=== PATIENT | female | born 1990 | race Caucasian/White ===

== ENCOUNTER 2020-02-24 21:09 | Inpatient (IN) | payer MEDICAID ==
[~2020-02-24] VITALS: Ht 167.6 cm; Wt 90.7 kg
[2020-02-24] MEDS ORDERED: PNV1TABL76 PO (22:03)
[2020-02-24] MEDS ORDERED: FERR325T6 PO (22:03)
[2020-02-24] MEDS ORDERED: CALC-861 PO (22:03)
[2020-02-24] MEDS: LACTATED RINGERS 1,000 ML IV SCH (22:35)
[2020-02-24 22:39] LABS: CLARITY URINE CLEAR (CLEAR); COLOR URINE YELLOW (YELLOW); KETONES URINE NEGATIVE (NEGATIVE); LEUKOCYTE ESTERASE URINE 2+ (NEGATIVE); NITRITE URINE NEGATIVE (NEGATIVE); OCCULT BLOOD URINE NEGATIVE (NEGATIVE); PH URINE 6.5 (4.5-8.0); PROTEIN URINE NEGATIVE (NEGATIVE); SPECIFIC GRAVITY URINE 1.009 (1.005-1.030); UROBILINOGEN URINE 0.2 E.U./dL (0.2-1.0)
[2020-02-24] MEDS ORDERED: ACETAMINOPHEN 500MG TABLET PO NR (23:45)
[2020-02-25] MEDS ORDERED: METHYLERGONOVINE MALEATE 0.2 MG/ML IM PRN (07:45)
[2020-02-25] MEDS ORDERED: NALOXONE HCL 0.4 MG/ML 1ML VIAL IM PRN (07:45)
[2020-02-25] MEDS ORDERED: CARBOPROST TROMETHAMINE 250 MCG/ML AMPUL IM PRN (07:45)
[2020-02-25] MEDS ORDERED: LACTATED RINGERS 1,000 ML IV SCH (08:00)
[2020-02-25 09:07] LABS: BASOPHILS % 0.1 % (0.0-2.0); EOSINOPHILS % 0.3 % (0.0-5.0); HEMATOCRIT. 30.1 % (36.0-48.0); HEMOGLOBIN. 10.5 g/dL (12.0-16.0); LYMPHOCYTES % 19.3 % (20.0-50.0); MEAN CORPUSCULAR HEMOGLOBIN 33.7 pg (28.0-32.0); MEAN CORPUSCULAR VOLUME 96.9 fL (81.0-99.0); MEAN PLATELET VOLUME 9.7 fl (7.4-10.4); MONOCYTES % 6.9 % (2.0-8.0); NEUTROPHILS % 73.4 % (40.0-76.0); PLATELET 106 x1000/uL (130-400); RED CELL DISTRIBUTION WIDTH 15.1 % (11.6-14.6)
[2020-02-25] MEDS ORDERED: OXYTOCIN 10 UNITS/ML 1ML ONE (09:08)
[2020-02-25] MEDS ORDERED: EPHEDRINE SULFATE 50MG/ML VIAL ONE (09:09)
[2020-02-25] MEDS ORDERED: PHENYLEPHRINE HCL 10 MG/ML 1ML (IV VIAL) IV ONE (09:09)
[2020-02-25] MEDS ORDERED: ONDANSETRON HCL 4MG/2ML INJ ONE (09:09)
[2020-02-25] MEDS ORDERED: CEFAZOLIN SODIUM 1000MG/VIAL ONE (09:09)
[2020-02-25] MEDS ORDERED: METOCLOPRAMIDE HCL 10MG/2ML VIAL ONE (09:10)
[2020-02-25] MEDS ORDERED: SODIUM CHLORIDE 0.9% 10ML VIAL ONE ×2 (09:10→09:17)
[2020-02-25 09:18] LABS: INR 0.9; PARTIAL THROMBOPLASTIN TIME 26.6 sec (23.4-31.0); PROTHROMBIN TIME 9.8 sec (9.6-11.0)
[2020-02-25 09:31] LABS: *AMPHETAMINES SCREEN URINE NEGATIVE (NEGATIVE); *BARBITURATES SCREEN URINE NEGATIVE (NEGATIVE)
[2020-02-25 09:32] LABS: *BENZODIAZEPINES SCREEN URINE NEGATIVE (NEGATIVE); *COCAINE SCREEN URINE NEGATIVE (NEGATIVE); CANNABINOID URINE SCREEN NEGATIVE (NEGATIVE); METHADONE URINE SCREEN NEGATIVE (NEGATIVE); OPIATES URINE SCREEN NEGATIVE (NEGATIVE); PHENCYCLIDINE URINE SCREEN NEGATIVE (NEGATIVE)
[2020-02-25] MEDS ORDERED: FENTANYL CITRATE/PF 50MCG/ML 2ML VIAL ONE (09:37)
[2020-02-25] MEDS ORDERED: MORPHINE SULFATE/PF 1MG/ML 10ML AMP ONE (09:37)
[2020-02-25] MEDS: LACTATED RINGERS 1,000 ML IV SCH ×2 (10:13→11:45)
[2020-02-25] MEDS ORDERED: CITRIC ACID/SODIUM CITRATE SOLN 30ML UDC PO NR (11:45)
[2020-02-25] MEDS ORDERED: KETOROLAC 60MG/2ML VIAL IM ONE (12:51)
[2020-02-25 12:52] LABS: HEPATITIS B SURFACE ANTIGEN NEGATIVE
[2020-02-25] MEDS ORDERED: ONDANSETRON HCL 4MG/2ML INJ IV PRN (13:15)
[2020-02-25] MEDS ORDERED: DIPHENHYDRAMINE 50MG/ML VIAL IV PRN (13:15)
[2020-02-25] MEDS ORDERED: MEPERIDINE HCL/PF 25MG/ML CPJ IV PRN (13:15)
[2020-02-25] MEDS ORDERED: KETOROLAC 30MG/ML VIAL IV PRN (13:15)
[2020-02-25] MEDS ORDERED: METOCLOPRAMIDE HCL 10MG/2ML VIAL IV PRN (13:15)
[2020-02-25] MEDS: DEXT 5%/LR + PITOCIN 20UNITS/L 1,000 ML IV SCH ×2 (14:17→23:00)
[2020-02-25 15:30] VITALS: BP 108/68
[2020-02-25 16:00] VITALS: BP 115/59
[2020-02-25] MEDS ORDERED: CLINDAMYCIN 900 MG PREMIX 50 ML IV ONE (20:32)
[2020-02-25 22:00] VITALS: BP 103/67
[2020-02-26 06:00] VITALS: BP 101/68
[2020-02-26 07:30] VITALS: BP 117/76
[2020-02-26 09:24] LABS: BASOPHILS % 0.2 % (0.0-2.0); EOSINOPHILS % 0.7 % (0.0-5.0); HEMATOCRIT. 31.8 % (36.0-48.0); LYMPHOCYTES % 12.2 % (20.0-50.0); MEAN CORPUSCULAR HEMOGLOBIN 33.5 pg (28.0-32.0); MEAN CORPUSCULAR VOLUME 97.2 fL (81.0-99.0); MEAN PLATELET VOLUME 9.4 fl (7.4-10.4); MONOCYTES % 6.4 % (2.0-8.0); NEUTROPHILS % 80.5 % (40.0-76.0); PLATELET 105 x1000/uL (130-400); RED BLOOD CELL COUNT 3.27 mill/uL (4.2-5.4); RED CELL DISTRIBUTION WIDTH 15.4 % (11.6-14.6)
[2020-02-26] MEDS ORDERED: IBUPROFEN 800MG TABLET PO PRN (13:30)
[2020-02-26] MEDS: ACETAMINOPHEN WITH CODEINE 300/30MG TABLET PO PRN ×2 (14:06→20:02)
[2020-02-26 16:58] VITALS: BP 105/69
[2020-02-26 19:40] VITALS: BP 108/69
[2020-02-26] MEDS ORDERED: DOCUSATE SODIUM 100MG CAPSULE PO SCH (21:00)
[2020-02-26] MEDS ORDERED: BISACODYL 10MG SUPP PR PRN (22:15)
[2020-02-26] MEDS ORDERED: SIMETHICONE 80MG TABLET CHEW PO SCH (23:00)
[2020-02-27 04:30] VITALS: BP 110/63
[2020-02-27 07:30] VITALS: BP 100/61
== END 2020-02-27 18:34 | disposition home or self-care (01) | DRG 540 ==
LOC: OBSVTOIN 21:09 → 8 EST LDRP 21:09 → 8EST 02-25 15:14
PROVIDERS: ADMIT Obstetrics & Gynecology; ATTEND Obstetrics & Gynecology
PROC: 10D00Z1 Extraction of Products of Conception, Low, Open Approach (ICD-10-PCS; principal; 2020-02-25)
DX: O34.219 Maternal care for unspecified type scar from previous cesarean delivery (principal); Z88.0 Allergy status to penicillin; Z83.3 Family history of diabetes mellitus; Z37.0 Single live birth; Z3A.38 38 weeks gestation of pregnancy
CPT/HCPCS: 36415; 76815; 80305; 81003; 85025; 86592; 86703; 86762; 86850; 86900; 86920; 87340; 88307; 99281; J0690; J1885; J2274; J2370; J2405; J2590; J2765; J3010; J3490; J7120